=== PATIENT | female | born 1980 | race Caucasian/White ===

== ENCOUNTER 2017-04-26 10:04 | Emergency (ER) | payer OTHER ==
[2017-04-26 10:05] VITALS: BMI 29.1
[2017-04-26 10:50] VITALS: RESP 18; O2SAT 100
--- NOTE | 2017-04-26 10:53 | ED PDOC ---
Arrival/HPI - General Chief Complaint: Dental Pain Time Seen by Provider: 04/26/17 10:46 Historian: Patient - History of Present Illness Narrative History of Present Illness (Text): 04/26/17 10:46 36-year-old female presents today with right-sided facial pain and swelling. Patient states last night she was eating and the right upper tooth fell out. Patient states she woke up today with swelling and pain to the right side of the face. Denies fevers or chills. Patient denies trismus or drooling. Denies pain with eye movement. Patient states she applied ice to the face this morning with slight improvement in the swelling. pt denies dizziness or weakness. no blurred vision. no other complaints. Time/Duration: Other (this morning) Symptom Onset: Sudden Quality: Aching Severity Level: 5 Past Medical History - Provider Review Nursing Documentation Reviewed: Yes - Travel History Have you recently traveled outside [place] w/in the past 3 mons?: No - Past History Past History: Non-Contributing - Past Medical History Past Medical History: No Previous - Psychiatric Hx Depression: No Hx Emotional Abuse: No Hx Physical Abuse: No Hx Substance Use: No - Past Surgical History Past Surgical History: No Previous - Suicidal Assessment Feels Threatened In Home Enviroment: No Family/Social History - Physician Review Nursing Documentation Reviewed: Yes Family/Social History: Unknown Family HX Smoking Status: Light Smoker < 10 Cigarettes Daily Hx Alcohol Use: No Hx Substance Use: No Allergies/Home Meds Allergies/Adverse Reactions: Allergies No Known Allergies Allergy (Verified 04/26/17 10:34) Review of Systems - Review of Systems Constitutional: absent: Fatigue, Fevers Eyes: absent: Vision Changes, Photophobia, Eye Pain ENT: Other (right upper dental pain). absent: Sore Throat, Sinus Congestion Respiratory: absent: SOB, Cough Cardiovascular: absent: Chest Pain, Palpitations Gastrointestinal: absent: Abdominal Pain, Nausea, Vomiting Genitourinary Female: absent: Dysuria Musculoskeletal: absent: Back Pain, Neck Pain Skin: absent: Rash, Pruritis Neurological: absent: Headache, Dizziness Psychiatric: absent: Anxiety, Depression, Suicidal Ideation Physical Exam Vital Signs Reviewed: Yes Vital Signs Temp Pulse Resp BP Pulse Ox 04/26/17 11:23 98.4 F 04/26/17 10:50 90 18 148/88 100 - Systems Exam Head: Present: Tenderness, Swelling (+ right sided facial swelling). No: Contusion Pupils: Present: PERRL Extroacular Muscles: Present: EOMI Conjunctiva: Present: Normal. No: Injected Ears: Present: Normal, NORMAL TM. No: Erythema Mouth: Present: Moist Mucous Membranes. No: Drooling, Trismus, Normal Teeth (+ dental fracture right upper tooth #4. + surrounding erythema and tenderness) Pharnyx: Present: Normal. No: ERYTHEMA, EXUDATE Nose (External): Present: Atraumatic Nose (Internal): Present: Normal Inspection Neck: Present: Normal Range of Motion, Trachea Midline. No: Lymphadenopathy Respiratory/Chest: Present: Clear to Auscultation Cardiovascular: Present: Regular Rate and Rhythm Neurological: Present: GCS=15, Speech Normal Skin: Present: Warm, Dry Psychiatric: Present: Alert, Oriented x 3 Medical Decision Making ED Course and Treatment: 04/26/17 11:02 Patient is nontoxic well-appearing in no distress with stable vital signs. right sided toothache/dental fracture and facial swelling No trismus or drooling, moist mucous membranes clindamcyin toradol 04/26/17 11:31 Patient reassessment: Patient is feeling better after medications. I advised follow-up with the dentist within the next 2 days. I advised immediate return is symptoms worsen persist or if new concerning symptoms develop Patient verbalizes understanding of discharge instructions and need for immediate followup. Impression: Toothache, dental abscess Motrin every 6 hours as needed for pain Clindamycin 1 tablet 3 times daily x 10 days Follow-up with the dentist within the next 2 days Follow up with the primary care physician within the next 2 days. Return immediately if symptoms worsen persist or if new symptoms develop; high fevers, increasing pain, increasing swelling, difficulty opening jaw or if any other concerning symptoms develop. Disposition/Present on Arrival - Present on Arrival Any Indicators Present on Arrival: No History of DVT/PE: No History of Uncontrolled Diabetes: No Urinary Catheter: No History of Decub. Ulcer: No History Surgical Site Infection Following: None - Disposition Have Diagnosis and Disposition been Completed?: Yes Diagnosis: Dental abscess Disposition: HOME/ ROUTINE Disposition Time: 11:03 Patient Plan: Discharge Patient Problems: Current Active Problems Problem Status Onset Dental abscess Acute Condition: GOOD Discharge Instructions (ExitCare): Dental Abscess (ED) Additional Instructions: Motrin every 6 hours as needed for pain Clindamycin 1 tablet 3 times daily x 10 days Follow-up with the dentist within the next 2 days Follow up with the primary care physician within the next 2 days. Return immediately if symptoms worsen persist or if new symptoms develop; high fevers, increasing pain, increasing swelling, difficulty opening jaw or if any other concerning symptoms develop. Prescriptions: Clindamycin [Cleocin] 300 mg PO TID #21 cap Ibuprofen [Motrin] 600 mg PO Q6H PRN #20 tab PRN Reason: pain/fever reduction Referrals: Sedrick Johnson MD [Staff Provider] - Follow up with primary Luiz Garza DMD [Staff Provider] - Follow up with primary Art Alcocer DMD [Non-Staff] - Follow up with primary Forms: [employer] (Hebrew), WORK NOTE
[2017-04-26 11:23] VITALS: TEMP 98.4
[2017-04-26 12:22] VITALS: BP 138/79; PULSE 81
== END 2017-04-26 12:37 | disposition home or self-care (01) ==
LOC: ED 10:04
DX: K04.7 Periapical abscess without sinus (principal); F17.210 Nicotine dependence, cigarettes, uncomplicated
CPT/HCPCS: 96372; 99283; J1885